=== PATIENT | female | born 1985 | race Caucasian/White ===

== ENCOUNTER 2020-08-09 11:53 | Emergency (ER) | payer OTHER ==
[~2020-08-09] VITALS: Ht 170.2 cm; Wt 47.6 kg
[2020-08-09] MEDS ORDERED: AMOX1TAB5 PO (12:05)
== END 2020-08-09 14:43 | disposition home or self-care (01) ==
LOC: ER 11:53
DX: T23.202S Burn of second degree of left hand, unspecified site, sequela (principal); V00-Y99 External causes of morbidity